=== PATIENT | male | born 1980 | race Two or more races ===

== ENCOUNTER → 2019-02-08 | Outpatient (CLI) | payer SELFPAY ==
[2019-02-08 11:29] LABS: SPERM CONCENTRATION 3.6 X10^6/mL (>12.0); TOTAL SPERM COUNT 11.5 X10^6 (>33.0)
[2019-02-08 11:30] LABS: SPERM PROGRESSION 2
[2019-02-08 12:00] LABS: PERCENT VIABLE 72 %; SEMEN VIABILITY STAINED 58; SEMEN VIABILITY UNSTAINED 149; TOTAL VIABILITY COUNT 207
[2019-02-08 12:01] LABS: PERCENT NONMOTILE SPERM 86 %; SPERM VIABILITY 76 % (>55)
== END ==
LOC: LAB 10:48
PROVIDERS: ATTEND Obstetrics & Gynecology
DX: Z31.41 Encounter for fertility testing (principal); Z91.89 Other specified personal risk factors, not elsewhere classified
CPT/HCPCS: 89321